=== PATIENT | male | born 2000 | race Caucasian/White ===

== ENCOUNTER 2018-03-27 21:52 | Emergency (ER) | payer BC, OTHER ==
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
[2018-03-28] MEDS ORDERED: Adacel (T-DAP) 0.5 ML VIAL ONE (00:01)
== END 2018-03-28 00:39 | disposition home or self-care (01) ==
LOC: ERS 21:52
DX: S80.212A Abrasion, left knee, initial encounter (principal); V43.62XA Car passenger injured in collision with other type car in traffic accident, initial encounter
CPT/HCPCS: 71046; 90471; 90715